=== PATIENT | female | born 1940 | race Caucasian/White ===

== ENCOUNTER 2022-10-02 13:32 | Emergency (ER) | payer MEDICARE, MEDICAID ==
[2022-10-02 17:05] LABS: ESTIMATED GFR 73 mL/min (>60)
[2022-10-02] MEDS ORDERED: Sodium Chloride 0.9% 10 ML Syringe FLUSH ONE (17:51)
[2022-10-02] MEDS ORDERED: Sodium Chloride 0.9% 50 ML IV SCH (18:00)
[2022-10-02] MEDS ORDERED: Iopamidol 612 MG/ML 100 ML Bottle IV SCH (18:00)
== END 2022-10-02 19:26 | disposition home or self-care (01) ==
LOC: JP.ED 13:32
DX: N34.2 Other urethritis (principal); N81.4 Uterovaginal prolapse, unspecified; I25.10 Atherosclerotic heart disease of native coronary artery without angina pectoris; I10 Essential (primary) hypertension; I25.2 Old myocardial infarction; J44.9 Chronic obstructive pulmonary disease, unspecified; Z79.82 Long term (current) use of aspirin
CPT/HCPCS: 36415; 74177; 80053; 81001; 85025; 99283; 99284; J3490; Q9967